=== PATIENT | male | born 1980 | race Caucasian/White ===

== ENCOUNTER 2018-04-28 14:15 | Emergency (ER) | payer BC ==
[~2018-04-28] VITALS: Ht 177.8 cm; Wt 96.7 kg
[2018-04-28] MEDS ORDERED: dexamethasone sod phosphate 10mg/ml inj PO STA (14:48)
[2018-04-28] MEDS ORDERED: LIDOcaine Viscous 15ml cup MM STA (14:48)
[2018-04-28] MEDS ORDERED: LISI-600 PO (15:38)
[2018-04-28] MEDS ORDERED: lisinopril 10 MG tablet PO ONE (15:40)
[2018-04-28 15:45] VITALS: BP 192/137
== END 2018-04-28 15:49 | disposition home or self-care (01) ==
LOC: ER 14:15
DX: J36 Peritonsillar abscess (principal); I10 Essential (primary) hypertension; F17.200 Nicotine dependence, unspecified, uncomplicated; Z79.899 Other long term (current) drug therapy
CPT/HCPCS: 42700; 99284; J1100; 10160